=== PATIENT | male | born 1940 | race African-American/Black ===

== ENCOUNTER → 2018-12-14 | Outpatient (RCR) | payer OTHER ==
[~2018-12-14] MED LIST: LIDOCAINE/PRILOCAINE 2.5-2.5% KIT ONE; MINERAL OIL/PETROLAT/GLYCERI 6OZ BTL ONE
== END ==
LOC: WCC 12-07 10:46
PROVIDERS: ATTEND Family Medicine Adult Medicine
DX: E11.8 Type 2 diabetes mellitus with unspecified complications (principal); I87.312 Chronic venous hypertension (idiopathic) with ulcer of left lower extremity; L97.328 Non-pressure chronic ulcer of left ankle with other specified severity; I89.0 Lymphedema, not elsewhere classified; I87.2 Venous insufficiency (chronic) (peripheral); R60.0 Localized edema; I10 Essential (primary) hypertension; E03.9 Hypothyroidism, unspecified; E66.3 Overweight
CPT/HCPCS: 36415; 82948

== ENCOUNTER 2018-12-21 13:19 | Outpatient (RCR) | payer MEDICARE ==
[2018-12-21] MEDS ORDERED: MINERAL OIL/PETROLAT/GLYCERI 2OZ CRM ONE (13:34)
[2018-12-21] MEDS ORDERED: LIDOCAINE/PRILOCAINE 2.5-2.5% KIT ONE (13:34)
[2018-12-21] MEDS ORDERED: MUPIROCIN 2% OINT 22 GM TUBE ONE (13:34)
== END 2019-01-14 ==
LOC: WCC 13:19
PROVIDERS: ATTEND Family Medicine Adult Medicine
DX: E11.8 Type 2 diabetes mellitus with unspecified complications (principal); I87.312 Chronic venous hypertension (idiopathic) with ulcer of left lower extremity; L97.328 Non-pressure chronic ulcer of left ankle with other specified severity; I87.2 Venous insufficiency (chronic) (peripheral); I89.0 Lymphedema, not elsewhere classified; L84 Corns and callosities; R60.0 Localized edema; E03.9 Hypothyroidism, unspecified; I10 Essential (primary) hypertension; E66.3 Overweight

== ENCOUNTER 2019-02-08 11:30 | Outpatient (RCR) | payer MEDICARE ==
[2019-02-08] MEDS ORDERED: MINERAL OIL/PETROLAT/GLYCERI 6OZ BTL ONE (18:07)
[2019-02-08] MEDS ORDERED: MUPIROCIN 2% OINT 22 GM TUBE ONE (18:07)
[2019-02-08] MEDS ORDERED: LIDOCAINE/PRILOCAINE 2.5-2.5% KIT ONE (18:07)
== END 2019-02-13 ==
LOC: WCC 11:30
PROVIDERS: ATTEND Family Medicine Adult Medicine
DX: E11.8 Type 2 diabetes mellitus with unspecified complications (principal); I87.312 Chronic venous hypertension (idiopathic) with ulcer of left lower extremity; L97.328 Non-pressure chronic ulcer of left ankle with other specified severity; L84 Corns and callosities; R60.0 Localized edema; I87.2 Venous insufficiency (chronic) (peripheral); I89.0 Lymphedema, not elsewhere classified; I10 Essential (primary) hypertension; E03.9 Hypothyroidism, unspecified; E66.3 Overweight
CPT/HCPCS: 93971

== ENCOUNTER 2019-03-29 12:26 | Outpatient (RCR) | payer MEDICARE ==
[2019-03-29] MEDS ORDERED: MINERAL OIL/PETROLAT/GLYCERI 6OZ BTL ONE (17:54)
[2019-03-29] MEDS ORDERED: LIDOCAINE/PRILOCAINE 2.5-2.5% KIT ONE (17:54)
== END 2019-04-15 ==
LOC: WCC 12:26
PROVIDERS: ATTEND Family Medicine Adult Medicine
DX: T81.89XA Other complications of procedures, not elsewhere classified, initial encounter (principal); K61.39 Other ischiorectal abscess; I10 Essential (primary) hypertension; E78.00 Pure hypercholesterolemia, unspecified; A49.02 Methicillin resistant Staphylococcus aureus infection, unspecified site

== ENCOUNTER 2019-05-03 11:28 | Outpatient (RCR) | payer MEDICARE ==
[2019-05-03] MEDS ORDERED: MUPIROCIN 2% OINT 22 GM TUBE ONE (16:43)
[2019-05-03] MEDS ORDERED: LIDOCAINE/PRILOCAINE 2.5-2.5% KIT ONE (16:43)
== END 2019-05-16 ==
LOC: WCC 11:28
PROVIDERS: ATTEND Family Medicine Adult Medicine
DX: E11.8 Type 2 diabetes mellitus with unspecified complications (principal); L97.328 Non-pressure chronic ulcer of left ankle with other specified severity; I87.312 Chronic venous hypertension (idiopathic) with ulcer of left lower extremity; I82.402 Acute embolism and thrombosis of unspecified deep veins of left lower extremity; I87.2 Venous insufficiency (chronic) (peripheral); I89.0 Lymphedema, not elsewhere classified; R60.0 Localized edema; L84 Corns and callosities; S80.822A Blister (nonthermal), left lower leg, initial encounter; I10 Essential (primary) hypertension; E03.9 Hypothyroidism, unspecified; E66.3 Overweight

== ENCOUNTER 2019-05-24 11:23 | Outpatient (RCR) | payer MEDICARE ==
[2019-05-24] MEDS ORDERED: LIDOCAINE VISC 2% SOLN 15 ML UDC ONE (16:12)
[2019-05-24] MEDS ORDERED: MUPIROCIN 2% OINT 22 GM TUBE ONE (16:12)
[2019-05-24] MEDS ORDERED: MINERAL OIL/PETROLAT/GLYCERI 6OZ BTL ONE (16:12)
== END 2019-06-16 ==
LOC: WCC 11:23
PROVIDERS: ATTEND Family Medicine Adult Medicine
DX: E11.8 Type 2 diabetes mellitus with unspecified complications (principal); L97.328 Non-pressure chronic ulcer of left ankle with other specified severity; I87.312 Chronic venous hypertension (idiopathic) with ulcer of left lower extremity; I82.402 Acute embolism and thrombosis of unspecified deep veins of left lower extremity; I87.2 Venous insufficiency (chronic) (peripheral); I89.0 Lymphedema, not elsewhere classified; R60.0 Localized edema; S80.822A Blister (nonthermal), left lower leg, initial encounter; L84 Corns and callosities; I10 Essential (primary) hypertension; E03.9 Hypothyroidism, unspecified; E66.3 Overweight

== ENCOUNTER 2019-06-21 11:25 | Outpatient (RCR) | payer MEDICARE ==
[2019-06-21] MEDS ORDERED: MINERAL OIL/PETROLAT/GLYCERI 6OZ BTL ONE (18:53)
[2019-06-21] MEDS ORDERED: LIDOCAINE/PRILOCAINE 2.5-2.5% KIT ONE (18:53)
[2019-06-21] MEDS ORDERED: MUPIROCIN 2% OINT 22 GM TUBE ONE (18:53)
== END 2019-07-16 ==
LOC: WCC 11:25
PROVIDERS: ATTEND Family Medicine Adult Medicine
DX: E11.8 Type 2 diabetes mellitus with unspecified complications (principal); I87.312 Chronic venous hypertension (idiopathic) with ulcer of left lower extremity; L97.328 Non-pressure chronic ulcer of left ankle with other specified severity; I82.402 Acute embolism and thrombosis of unspecified deep veins of left lower extremity; I87.2 Venous insufficiency (chronic) (peripheral); I89.0 Lymphedema, not elsewhere classified; R60.0 Localized edema; L84 Corns and callosities; I10 Essential (primary) hypertension; E03.9 Hypothyroidism, unspecified; E66.3 Overweight

== ENCOUNTER 2019-07-19 13:15 | Outpatient (RCR) | payer MEDICARE ==
[~2019-07-19 13:15] MED LIST changes: +MUPIROCIN 2% OINT 22 GM TUBE ONE
== END 2019-08-16 ==
LOC: WCC 13:15
PROVIDERS: ATTEND Family Medicine Adult Medicine
DX: E11.8 Type 2 diabetes mellitus with unspecified complications (principal); I87.312 Chronic venous hypertension (idiopathic) with ulcer of left lower extremity; L97.328 Non-pressure chronic ulcer of left ankle with other specified severity; L03.116 Cellulitis of left lower limb; I82.402 Acute embolism and thrombosis of unspecified deep veins of left lower extremity; I87.2 Venous insufficiency (chronic) (peripheral); I89.0 Lymphedema, not elsewhere classified; L84 Corns and callosities; R60.0 Localized edema; I10 Essential (primary) hypertension; B96.89 Other specified bacterial agents as the cause of diseases classified elsewhere; E03.9 Hypothyroidism, unspecified; E66.3 Overweight

== ENCOUNTER 2019-09-11 09:52 | Outpatient (RCR) | payer MEDICARE ==
[2019-09-11] MEDS ORDERED: MUPIROCIN 2% OINT 22 GM TUBE ONE (14:59)
[2019-09-11] MEDS ORDERED: LIDOCAINE/PRILOCAINE 2.5-2.5% KIT ONE (14:59)
== END 2019-09-15 ==
LOC: WCC 09:52
PROVIDERS: ATTEND Family Medicine Adult Medicine
DX: E11.8 Type 2 diabetes mellitus with unspecified complications (principal); I87.312 Chronic venous hypertension (idiopathic) with ulcer of left lower extremity; I82.402 Acute embolism and thrombosis of unspecified deep veins of left lower extremity; L97.328 Non-pressure chronic ulcer of left ankle with other specified severity; L03.116 Cellulitis of left lower limb; L84 Corns and callosities; R60.0 Localized edema; I89.0 Lymphedema, not elsewhere classified; I87.2 Venous insufficiency (chronic) (peripheral); I10 Essential (primary) hypertension; B96.89 Other specified bacterial agents as the cause of diseases classified elsewhere; E03.9 Hypothyroidism, unspecified; E66.3 Overweight
CPT/HCPCS: 36415; 82948

== ENCOUNTER 2019-09-27 01:00 | Outpatient (RCR) | payer MEDICARE | END 2019-10-16 | LOC: WCC 01:00 | PROVIDERS: ATTEND Family Medicine Adult Medicine | DX: E11.8 Type 2 diabetes mellitus with unspecified complications (principal); I87.312 Chronic venous hypertension (idiopathic) with ulcer of left lower extremity; L97.328 Non-pressure chronic ulcer of left ankle with other specified severity; L84 Corns and callosities; R60.0 Localized edema; I82.402 Acute embolism and thrombosis of unspecified deep veins of left lower extremity; I87.2 Venous insufficiency (chronic) (peripheral); I89.0 Lymphedema, not elsewhere classified; L03.116 Cellulitis of left lower limb; I10 Essential (primary) hypertension; B96.89 Other specified bacterial agents as the cause of diseases classified elsewhere; E03.9 Hypothyroidism, unspecified; E66.3 Overweight ==

== ENCOUNTER 2019-12-06 15:40 | Outpatient (RCR) | payer MEDICARE ==
[~2019-12-06 15:40] MED LIST changes: -MINERAL OIL/PETROLAT/GLYCERI 6OZ BTL ONE
== END 2019-12-15 ==
LOC: WCC 15:40
PROVIDERS: ATTEND Family Medicine Adult Medicine
DX: E11.8 Type 2 diabetes mellitus with unspecified complications (principal); I87.312 Chronic venous hypertension (idiopathic) with ulcer of left lower extremity; L97.328 Non-pressure chronic ulcer of left ankle with other specified severity; I82.402 Acute embolism and thrombosis of unspecified deep veins of left lower extremity; I87.2 Venous insufficiency (chronic) (peripheral); I89.0 Lymphedema, not elsewhere classified; R60.0 Localized edema; L84 Corns and callosities; I10 Essential (primary) hypertension; B96.5 Pseudomonas (aeruginosa) (mallei) (pseudomallei) as the cause of diseases classified elsewhere; B96.89 Other specified bacterial agents as the cause of diseases classified elsewhere; E03.9 Hypothyroidism, unspecified; E66.3 Overweight
CPT/HCPCS: 36415; 82948

== ENCOUNTER 2020-01-11 14:31 | Outpatient (RCR) | payer MEDICARE ==
[2020-01-11] MEDS ORDERED: MUPIROCIN 2% OINT 22 GM TUBE ONE (15:03)
[2020-01-11] MEDS ORDERED: LIDOCAINE VISC 2% SOLN 15 ML UDC ONE (15:03)
== END 2020-01-15 ==
LOC: WCC 14:31
PROVIDERS: ATTEND Family Medicine Adult Medicine
DX: E11.8 Type 2 diabetes mellitus with unspecified complications (principal); I87.312 Chronic venous hypertension (idiopathic) with ulcer of left lower extremity; L97.328 Non-pressure chronic ulcer of left ankle with other specified severity; I87.2 Venous insufficiency (chronic) (peripheral); I82.402 Acute embolism and thrombosis of unspecified deep veins of left lower extremity; R60.0 Localized edema; I89.0 Lymphedema, not elsewhere classified; L84 Corns and callosities; I10 Essential (primary) hypertension; B96.89 Other specified bacterial agents as the cause of diseases classified elsewhere; B96.5 Pseudomonas (aeruginosa) (mallei) (pseudomallei) as the cause of diseases classified elsewhere; E66.3 Overweight; E03.9 Hypothyroidism, unspecified
CPT/HCPCS: 36415; 82948; 87071; 87075; 87186; 87205

== ENCOUNTER 2020-02-06 09:26 | Outpatient (RCR) | payer MEDICARE ==
[~2020-02-06 09:26] MED LIST changes: +LIDOCAINE VISC 2% SOLN 15 ML UDC ONE; +MINERAL OIL/PETROLAT/GLYCERI 6OZ BTL ONE
[2020-02-06] MEDS ORDERED: COLLAGENASE OINTMENT 30 GM TUBE ONE (14:10)
[2020-02-06] MEDS ORDERED: LIDOCAINE/PRILOCAINE 2.5-2.5% KIT ONE (14:10)
[2020-02-06] MEDS ORDERED: MUPIROCIN 2% OINT 22 GM TUBE ONE (14:10)
== END 2020-02-14 ==
LOC: WCC 09:26
PROVIDERS: ATTEND Family Medicine
DX: E11.8 Type 2 diabetes mellitus with unspecified complications (principal); I87.312 Chronic venous hypertension (idiopathic) with ulcer of left lower extremity; L97.328 Non-pressure chronic ulcer of left ankle with other specified severity; I82.402 Acute embolism and thrombosis of unspecified deep veins of left lower extremity; R60.0 Localized edema; I87.2 Venous insufficiency (chronic) (peripheral); I89.0 Lymphedema, not elsewhere classified; L84 Corns and callosities; I10 Essential (primary) hypertension; B96.20 Unspecified Escherichia coli [E. coli] as the cause of diseases classified elsewhere; B96.89 Other specified bacterial agents as the cause of diseases classified elsewhere; B96.5 Pseudomonas (aeruginosa) (mallei) (pseudomallei) as the cause of diseases classified elsewhere; E03.9 Hypothyroidism, unspecified; E66.3 Overweight
CPT/HCPCS: 36415; 82948; 87071; 87075; 87186; 87205

== ENCOUNTER → 2020-02-11 | Outpatient (CLI) | payer MEDICARE | LOC: CARD 08:53 | PROVIDERS: ATTEND Family Medicine | DX: E11.8 Type 2 diabetes mellitus with unspecified complications (principal) | CPT/HCPCS: 93926; 99251 ==

== ENCOUNTER 2020-03-12 11:05 | Outpatient (RCR) | payer MEDICARE ==
[~2020-03-12 11:05] MED LIST changes: -LIDOCAINE/PRILOCAINE 2.5-2.5% KIT ONE; +MINERAL OIL/PETROLAT/GLYCERI 2OZ CRM ONE; -MUPIROCIN 2% OINT 22 GM TUBE ONE
[2020-03-12] MEDS ORDERED: LIDOCAINE/PRILOCAINE 2.5-2.5% KIT ONE (13:43)
== END 2020-03-16 ==
LOC: WCC 11:05
PROVIDERS: ATTEND Family Medicine
DX: E11.8 Type 2 diabetes mellitus with unspecified complications (principal); I87.312 Chronic venous hypertension (idiopathic) with ulcer of left lower extremity; L97.328 Non-pressure chronic ulcer of left ankle with other specified severity; I82.402 Acute embolism and thrombosis of unspecified deep veins of left lower extremity; I73.9 Peripheral vascular disease, unspecified; I87.2 Venous insufficiency (chronic) (peripheral); I89.0 Lymphedema, not elsewhere classified; R60.0 Localized edema; L84 Corns and callosities; I10 Essential (primary) hypertension; B96.5 Pseudomonas (aeruginosa) (mallei) (pseudomallei) as the cause of diseases classified elsewhere; B96.89 Other specified bacterial agents as the cause of diseases classified elsewhere; B96.20 Unspecified Escherichia coli [E. coli] as the cause of diseases classified elsewhere; E03.9 Hypothyroidism, unspecified; E66.3 Overweight

== ENCOUNTER → 2020-04-15 | Outpatient (RCR) | payer MEDICARE ==
[2020-04-15 11:20] LABS: BASOPHILS % 0.6 % (0.0-1.0); EOSINOPHILS # (AUTO) 0.1 (0.0-0.4); EOSINOPHILS % 2.5 % (0.0-6.0); HEMATOCRIT 32.3 % (38.2-49.6); HEMOGLOBIN 9.8 g/dL (14.0-18.0); LYMPHOCYTES # (AUTO) 1.4 (1.0-3.2); LYMPHOCYTES % 40.1 % (18.0-39.1); MEAN CORPUSCULAR HEMOGLOBIN 26.7 pg (28-32); MEAN CORPUSCULAR HGB CONC 30.3 g/dL (31-35); MONOCYTES # (AUTO) 0.3 (0.2-0.8); MONOCYTES % 8.1 % (4.4-11.3); NEUTROPHILS # (AUTO) 1.7 (2.1-6.9); NEUTROPHILS % 48.4 % (38.7-80.0); PLATELET COUNT 150 x10e3/uL (140-360); RED BLOOD COUNT 3.67 x10e6/uL (4.3-5.7); RED CELL DISTRIBUTION WIDTH 16.3 % (11.7-14.4)
[2020-04-15 11:42] LABS: ALANINE AMINOTRANSFERASE 7 IU/L (0-55); ALBUMIN 3.7 g/dL (3.5-5.0); ALBUMIN/GLOBULIN RATIO 0.9 (0.8-2.0); ALKALINE PHOSPHATASE 61 IU/L (40-150); ANION GAP 12.2 mmol/L (8-16); BLOOD UREA NITROGEN 12 mg/dL (7-26); BUN/CREATININE RATIO 13 (6-25); CALCIUM 9.5 mg/dL (8.4-10.2); CARBON DIOXIDE 25 mmol/L (22-29); CHLORIDE 105 mmol/L (98-107); CREATININE, SERUM 0.91 mg/dL (0.72-1.25); EST GLOMERULAR FILTRATION RATE > 60 ML/MIN (60-); GLUCOSE 85 mg/dL (74-118); POTASSIUM 4.2 mmol/L (3.5-5.1); SODIUM 138 mmol/L (136-145)
== END ==
LOC: WCC 03-19 13:51
PROVIDERS: ATTEND Family Medicine Adult Medicine
DX: E11.8 Type 2 diabetes mellitus with unspecified complications (principal); B37.89 Other sites of candidiasis; I87.312 Chronic venous hypertension (idiopathic) with ulcer of left lower extremity; L97.328 Non-pressure chronic ulcer of left ankle with other specified severity; I82.402 Acute embolism and thrombosis of unspecified deep veins of left lower extremity; I73.9 Peripheral vascular disease, unspecified; I87.2 Venous insufficiency (chronic) (peripheral); I89.0 Lymphedema, not elsewhere classified; R60.0 Localized edema; L84 Corns and callosities; I10 Essential (primary) hypertension; B96.5 Pseudomonas (aeruginosa) (mallei) (pseudomallei) as the cause of diseases classified elsewhere; B96.89 Other specified bacterial agents as the cause of diseases classified elsewhere; E03.9 Hypothyroidism, unspecified; E66.9 Obesity, unspecified
CPT/HCPCS: 36415; 80053; 83036; 85025; 87071; 87075; 87186; 87205

== ENCOUNTER 2020-05-15 12:14 | Outpatient (RCR) | payer MEDICARE | END 2020-05-16 | LOC: WCC 12:14 | PROVIDERS: ATTEND Family Medicine Adult Medicine | DX: E11.8 Type 2 diabetes mellitus with unspecified complications (principal); I87.312 Chronic venous hypertension (idiopathic) with ulcer of left lower extremity; L97.328 Non-pressure chronic ulcer of left ankle with other specified severity; I82.402 Acute embolism and thrombosis of unspecified deep veins of left lower extremity; I73.9 Peripheral vascular disease, unspecified; I87.2 Venous insufficiency (chronic) (peripheral); I89.0 Lymphedema, not elsewhere classified; R60.0 Localized edema; B37.89 Other sites of candidiasis; I10 Essential (primary) hypertension; B96.20 Unspecified Escherichia coli [E. coli] as the cause of diseases classified elsewhere; B96.89 Other specified bacterial agents as the cause of diseases classified elsewhere; E03.9 Hypothyroidism, unspecified; E66.3 Overweight ==

== ENCOUNTER 2020-05-29 14:10 | Outpatient (RCR) | payer MEDICARE | END 2020-06-16 | LOC: WCC 14:10 | PROVIDERS: ATTEND Family Medicine Adult Medicine | DX: E11.8 Type 2 diabetes mellitus with unspecified complications (principal); I87.312 Chronic venous hypertension (idiopathic) with ulcer of left lower extremity; L97.328 Non-pressure chronic ulcer of left ankle with other specified severity; I82.402 Acute embolism and thrombosis of unspecified deep veins of left lower extremity; I73.9 Peripheral vascular disease, unspecified; I89.0 Lymphedema, not elsewhere classified; R60.0 Localized edema; I87.2 Venous insufficiency (chronic) (peripheral); B96.89 Other specified bacterial agents as the cause of diseases classified elsewhere; I10 Essential (primary) hypertension; E03.9 Hypothyroidism, unspecified; E66.3 Overweight ==

== ENCOUNTER 2020-07-03 14:24 | Outpatient (RCR) | payer MEDICARE ==
[~2020-07-03 14:24] MED LIST changes: -LIDOCAINE VISC 2% SOLN 15 ML UDC ONE; +LIDOCAINE/PRILOCAINE 2.5-2.5% KIT ONE
== END 2020-07-16 ==
LOC: WCC 14:24
PROVIDERS: ATTEND Family Medicine Adult Medicine
DX: E11.8 Type 2 diabetes mellitus with unspecified complications (principal); L97.328 Non-pressure chronic ulcer of left ankle with other specified severity; I82.402 Acute embolism and thrombosis of unspecified deep veins of left lower extremity; I87.312 Chronic venous hypertension (idiopathic) with ulcer of left lower extremity; I73.9 Peripheral vascular disease, unspecified; I87.2 Venous insufficiency (chronic) (peripheral); I89.0 Lymphedema, not elsewhere classified; R60.0 Localized edema; L84 Corns and callosities; I10 Essential (primary) hypertension; B96.89 Other specified bacterial agents as the cause of diseases classified elsewhere; E03.9 Hypothyroidism, unspecified; E66.3 Overweight
CPT/HCPCS: 87071; 87075; 87186; 87205

== ENCOUNTER → 2020-07-03 | Outpatient (CLI) | payer MEDICARE ==
--- NOTE | 2020-07-03 14:58 | Diagnostic Imaging Report ---
EXAMINATION: CHEST 2 VIEWS INDICATION: Shortness of breath COMPARISON: None FINDINGS: LINES/TUBES:None LUNGS:The lungs are moderately inflated. Mild bibasilar patchy opacities. PLEURA:No pleural effusion or pneumothorax. MEDIASTINUM:The cardiomediastinal silhouette appears normal in size and shape. Atherosclerotic calcifications of the thoracic aorta. BONES/SOFT TISSUES:No acute osseous injury. ABDOMEN:No free air under the diaphragm. IMPRESSION: Mild bibasilar patchy opacities, more likely subsegmental atelectasis than superimposed aspiration or pneumonia. Signed by: Duc Alexis MD on 07/03/2020 2:54 PM
== END ==
LOC: RAD 12:26
PROVIDERS: ATTEND Family Medicine Adult Medicine
DX: I87.312 Chronic venous hypertension (idiopathic) with ulcer of left lower extremity (principal); L97.328 Non-pressure chronic ulcer of left ankle with other specified severity; R06.02 Shortness of breath; R60.9 Edema, unspecified
CPT/HCPCS: 71046; 93971

== ENCOUNTER → 2020-07-09 | Outpatient (CLI) | payer MEDICARE ==
[2020-07-09 11:27] LABS: HEMOGLOBIN 8.9 g/dL (14.0-18.0)
[2020-07-09 11:34] LABS: INR 1.38; PROTHROMBIN TIME 17.7 seconds (11.9-14.5)
[2020-07-09 11:40] LABS: BLOOD UREA NITROGEN 14 mg/dL (7-26); BUN/CREATININE RATIO 15 (6-25); CREATININE, SERUM 0.95 mg/dL (0.72-1.25); EST GLOMERULAR FILTRATION RATE > 60 ML/MIN (60-)
--- NOTE | 2020-07-09 13:34 | Diagnostic Imaging Report ---
EXAMINATION: CHEST XRAY LINE PLACEMENT INDICATION: Line placement COMPARISON: Chest 07/03/2020 FINDINGS: LINES/TUBES:Right PICC line terminates in the SVC. LUNGS:The lungs are moderately inflated. There is perihilar fullness and indistinctness of the pulmonary vasculature. Unchanged mild bilateral patchy opacities. PLEURA:No pleural effusion or pneumothorax. MEDIASTINUM:Cardiomediastinal silhouette is stably enlarged. BONES/SOFT TISSUES:No acute osseous injury. ABDOMEN:No free air under the diaphragm. IMPRESSION: Right PICC line terminates in the SVC. Signed by: Duc Alexis MD on 07/09/2020 1:31 PM
== END ==
LOC: DX 10:46
PROVIDERS: ATTEND Internal Medicine Infectious Disease
DX: A49.8 Other bacterial infections of unspecified site (principal); I87.9 Disorder of vein, unspecified
CPT/HCPCS: 36415; 36569; 71045; 82565; 84520; 85014; 85049; 85610; 85730

== ENCOUNTER 2020-08-14 12:14 | Outpatient (RCR) | payer MEDICARE ==
[~2020-08-14 12:14] MED LIST changes: -MINERAL OIL/PETROLAT/GLYCERI 2OZ CRM ONE
[2020-08-14] MEDS ORDERED: LIDOCAINE VISC 2% SOLN 15 ML UDC ONE ×2 (13:16→16:32)
[2020-08-14] MEDS ORDERED: MINERAL OIL/PETROLAT/GLYCERI 6OZ BTL ONE ×2 (13:16→16:32)
== END 2020-08-16 ==
LOC: WCC 12:14
PROVIDERS: ATTEND Family Medicine Adult Medicine
DX: E11.8 Type 2 diabetes mellitus with unspecified complications (principal); I87.312 Chronic venous hypertension (idiopathic) with ulcer of left lower extremity; L97.328 Non-pressure chronic ulcer of left ankle with other specified severity; S91.202A Unspecified open wound of left great toe with damage to nail, initial encounter; I82.402 Acute embolism and thrombosis of unspecified deep veins of left lower extremity; I73.9 Peripheral vascular disease, unspecified; I89.0 Lymphedema, not elsewhere classified; R60.0 Localized edema; I87.2 Venous insufficiency (chronic) (peripheral); R06.02 Shortness of breath; I50.22 Chronic systolic (congestive) heart failure; I10 Essential (primary) hypertension; B96.29 Other Escherichia coli [E. coli] as the cause of diseases classified elsewhere; B96.5 Pseudomonas (aeruginosa) (mallei) (pseudomallei) as the cause of diseases classified elsewhere; B96.89 Other specified bacterial agents as the cause of diseases classified elsewhere; E03.9 Hypothyroidism, unspecified; E66.3 Overweight; W29.8XXA Contact with other powered hand tools and household machinery, initial encounter
CPT/HCPCS: 87071; 87075; 87205; 88305; 88312

== ENCOUNTER 2020-09-04 14:38 | Outpatient (RCR) | payer MEDICARE ==
[~2020-09-04 14:38] MED LIST changes: +LIDOCAINE VISC 2% SOLN 15 ML UDC ONE; -LIDOCAINE/PRILOCAINE 2.5-2.5% KIT ONE; +MINERAL OIL/PETROLAT/GLYCERI 2OZ CRM ONE
== END 2020-09-15 ==
LOC: WCC 14:38
PROVIDERS: ATTEND Family Medicine Adult Medicine
DX: E11.8 Type 2 diabetes mellitus with unspecified complications (principal); I87.312 Chronic venous hypertension (idiopathic) with ulcer of left lower extremity; L97.328 Non-pressure chronic ulcer of left ankle with other specified severity; S91.202A Unspecified open wound of left great toe with damage to nail, initial encounter; I73.9 Peripheral vascular disease, unspecified; I82.402 Acute embolism and thrombosis of unspecified deep veins of left lower extremity; I87.2 Venous insufficiency (chronic) (peripheral); I89.0 Lymphedema, not elsewhere classified; R60.0 Localized edema; S80.811A Abrasion, right lower leg, initial encounter; I10 Essential (primary) hypertension; I50.22 Chronic systolic (congestive) heart failure; B96.29 Other Escherichia coli [E. coli] as the cause of diseases classified elsewhere; B96.5 Pseudomonas (aeruginosa) (mallei) (pseudomallei) as the cause of diseases classified elsewhere; B96.89 Other specified bacterial agents as the cause of diseases classified elsewhere; E03.9 Hypothyroidism, unspecified; E66.3 Overweight; W29.8XXA Contact with other powered hand tools and household machinery, initial encounter
CPT/HCPCS: 87071; 87075; 87102; 87205; 87206

== ENCOUNTER → 2020-09-10 | Outpatient (CLI) | payer MEDICARE | LOC: DX 11:59 | PROVIDERS: ATTEND Internal Medicine Infectious Disease | DX: Z45.2 Encounter for adjustment and management of vascular access device (principal); B96.89 Other specified bacterial agents as the cause of diseases classified elsewhere | CPT/HCPCS: 36569; 71045 ==

== ENCOUNTER → 2020-10-16 | Outpatient (RCR) | payer MEDICARE ==
[~2020-10-16] MED LIST changes: -MINERAL OIL/PETROLAT/GLYCERI 2OZ CRM ONE
== END ==
LOC: WCC 09-18 10:47
PROVIDERS: ATTEND Family Medicine Adult Medicine
DX: E11.8 Type 2 diabetes mellitus with unspecified complications (principal); I82.402 Acute embolism and thrombosis of unspecified deep veins of left lower extremity; L97.328 Non-pressure chronic ulcer of left ankle with other specified severity; I87.312 Chronic venous hypertension (idiopathic) with ulcer of left lower extremity; I87.2 Venous insufficiency (chronic) (peripheral); R60.0 Localized edema; I73.9 Peripheral vascular disease, unspecified; I10 Essential (primary) hypertension; I50.22 Chronic systolic (congestive) heart failure; B96.29 Other Escherichia coli [E. coli] as the cause of diseases classified elsewhere; B96.5 Pseudomonas (aeruginosa) (mallei) (pseudomallei) as the cause of diseases classified elsewhere; B96.89 Other specified bacterial agents as the cause of diseases classified elsewhere; E03.9 Hypothyroidism, unspecified; E66.3 Overweight; I89.0 Lymphedema, not elsewhere classified; S80.811A Abrasion, right lower leg, initial encounter; W29.8XXA Contact with other powered hand tools and household machinery, initial encounter

== ENCOUNTER 2020-11-06 16:20 | Outpatient (RCR) | payer MEDICARE | END 2020-11-16 | LOC: WCC 16:20 | PROVIDERS: ATTEND Family Medicine Adult Medicine | DX: E11.8 Type 2 diabetes mellitus with unspecified complications (principal); L97.328 Non-pressure chronic ulcer of left ankle with other specified severity; L97.811 Non-pressure chronic ulcer of other part of right lower leg limited to breakdown of skin; L97.229 Non-pressure chronic ulcer of left calf with unspecified severity; I87.312 Chronic venous hypertension (idiopathic) with ulcer of left lower extremity; I87.311 Chronic venous hypertension (idiopathic) with ulcer of right lower extremity; I82.402 Acute embolism and thrombosis of unspecified deep veins of left lower extremity; I89.0 Lymphedema, not elsewhere classified; I87.2 Venous insufficiency (chronic) (peripheral); R60.0 Localized edema; I73.9 Peripheral vascular disease, unspecified; I10 Essential (primary) hypertension; B96.29 Other Escherichia coli [E. coli] as the cause of diseases classified elsewhere; B96.5 Pseudomonas (aeruginosa) (mallei) (pseudomallei) as the cause of diseases classified elsewhere; B96.89 Other specified bacterial agents as the cause of diseases classified elsewhere; I50.22 Chronic systolic (congestive) heart failure; E03.9 Hypothyroidism, unspecified; E66.3 Overweight; W29.8XXA Contact with other powered hand tools and household machinery, initial encounter | CPT/HCPCS: 36415; 82948 ==

== ENCOUNTER 2020-12-11 15:06 | Outpatient (RCR) | payer MEDICARE ==
[~2020-12-11 15:06] MED LIST changes: -MINERAL OIL/PETROLAT/GLYCERI 6OZ BTL ONE
== END 2020-12-14 ==
LOC: WCC 15:06
PROVIDERS: ATTEND Family Medicine Adult Medicine
DX: E11.8 Type 2 diabetes mellitus with unspecified complications (principal); I82.402 Acute embolism and thrombosis of unspecified deep veins of left lower extremity; L97.328 Non-pressure chronic ulcer of left ankle with other specified severity; I87.312 Chronic venous hypertension (idiopathic) with ulcer of left lower extremity; I87.2 Venous insufficiency (chronic) (peripheral); I89.0 Lymphedema, not elsewhere classified; R60.0 Localized edema; I73.9 Peripheral vascular disease, unspecified; I10 Essential (primary) hypertension; I50.22 Chronic systolic (congestive) heart failure; B96.29 Other Escherichia coli [E. coli] as the cause of diseases classified elsewhere; B96.89 Other specified bacterial agents as the cause of diseases classified elsewhere; B96.5 Pseudomonas (aeruginosa) (mallei) (pseudomallei) as the cause of diseases classified elsewhere; E03.9 Hypothyroidism, unspecified; E66.3 Overweight; W29.8XXA Contact with other powered hand tools and household machinery, initial encounter

== ENCOUNTER 2021-01-13 15:43 | Outpatient (RCR) | payer MEDICARE ==
[~2021-01-13 15:43] MED LIST changes: +LIDOCAINE/PRILOCAINE 2.5-2.5% KIT ONE; +MINERAL OIL/PETROLAT/GLYCERI 2OZ CRM ONE; +MINERAL OIL/PETROLAT/GLYCERI 6OZ BTL ONE
== END 2021-01-14 ==
LOC: WCC 15:43
PROVIDERS: ATTEND Family Medicine Adult Medicine
DX: E11.8 Type 2 diabetes mellitus with unspecified complications (principal); I87.312 Chronic venous hypertension (idiopathic) with ulcer of left lower extremity; L97.328 Non-pressure chronic ulcer of left ankle with other specified severity; I82.402 Acute embolism and thrombosis of unspecified deep veins of left lower extremity; R60.0 Localized edema; I89.0 Lymphedema, not elsewhere classified; I73.9 Peripheral vascular disease, unspecified; I87.2 Venous insufficiency (chronic) (peripheral); B96.29 Other Escherichia coli [E. coli] as the cause of diseases classified elsewhere; B96.5 Pseudomonas (aeruginosa) (mallei) (pseudomallei) as the cause of diseases classified elsewhere; B96.89 Other specified bacterial agents as the cause of diseases classified elsewhere; I50.22 Chronic systolic (congestive) heart failure; I10 Essential (primary) hypertension; E03.9 Hypothyroidism, unspecified; E66.3 Overweight; W29.8XXA Contact with other powered hand tools and household machinery, initial encounter
CPT/HCPCS: 87071; 87075; 87186; 87205

== ENCOUNTER 2021-02-12 14:55 | Outpatient (RCR) | payer MEDICARE | END 2021-02-13 | LOC: WCC 14:55 | PROVIDERS: ATTEND Family Medicine Adult Medicine | DX: E11.8 Type 2 diabetes mellitus with unspecified complications (principal); I87.312 Chronic venous hypertension (idiopathic) with ulcer of left lower extremity; L97.328 Non-pressure chronic ulcer of left ankle with other specified severity; R60.0 Localized edema; I73.9 Peripheral vascular disease, unspecified; I82.402 Acute embolism and thrombosis of unspecified deep veins of left lower extremity; I87.2 Venous insufficiency (chronic) (peripheral); I89.0 Lymphedema, not elsewhere classified; I10 Essential (primary) hypertension; I50.22 Chronic systolic (congestive) heart failure; B96.89 Other specified bacterial agents as the cause of diseases classified elsewhere; E03.9 Hypothyroidism, unspecified; E66.3 Overweight; W29.8XXA Contact with other powered hand tools and household machinery, initial encounter | CPT/HCPCS: 36415; 82948 ==

== ENCOUNTER 2021-03-12 09:07 | Outpatient (RCR) | payer MEDICARE ==
[~2021-03-12 09:07] MED LIST changes: -LIDOCAINE/PRILOCAINE 2.5-2.5% KIT ONE
[2021-03-12] MEDS ORDERED: MINERAL OIL/PETROLAT/GLYCERI 6OZ BTL ONE (13:31)
== END 2021-03-16 ==
LOC: WCC 09:07
PROVIDERS: ATTEND Family Medicine Adult Medicine
DX: E11.8 Type 2 diabetes mellitus with unspecified complications (principal); I87.312 Chronic venous hypertension (idiopathic) with ulcer of left lower extremity; L97.328 Non-pressure chronic ulcer of left ankle with other specified severity; I82.402 Acute embolism and thrombosis of unspecified deep veins of left lower extremity; I73.9 Peripheral vascular disease, unspecified; I87.2 Venous insufficiency (chronic) (peripheral); I89.0 Lymphedema, not elsewhere classified; R60.0 Localized edema; B96.89 Other specified bacterial agents as the cause of diseases classified elsewhere; I50.22 Chronic systolic (congestive) heart failure; I10 Essential (primary) hypertension; E03.9 Hypothyroidism, unspecified; E66.3 Overweight; W29.8XXA Contact with other powered hand tools and household machinery, initial encounter

== ENCOUNTER 2021-04-14 08:51 | Outpatient (RCR) | payer MEDICARE ==
[~2021-04-14 08:51] MED LIST changes: +LIDOCAINE/PRILOCAINE 2.5-2.5% KIT ONE; -MINERAL OIL/PETROLAT/GLYCERI 2OZ CRM ONE
== END 2021-04-15 ==
LOC: WCC 08:51
PROVIDERS: ATTEND Family Medicine Adult Medicine
DX: I87.312 Chronic venous hypertension (idiopathic) with ulcer of left lower extremity (principal); E11.8 Type 2 diabetes mellitus with unspecified complications; L97.328 Non-pressure chronic ulcer of left ankle with other specified severity; I82.402 Acute embolism and thrombosis of unspecified deep veins of left lower extremity; R60.0 Localized edema; I89.0 Lymphedema, not elsewhere classified; I87.2 Venous insufficiency (chronic) (peripheral); I73.9 Peripheral vascular disease, unspecified; I10 Essential (primary) hypertension; I50.22 Chronic systolic (congestive) heart failure; B96.89 Other specified bacterial agents as the cause of diseases classified elsewhere; E03.9 Hypothyroidism, unspecified; E66.3 Overweight; W29.8XXA Contact with other powered hand tools and household machinery, initial encounter

== ENCOUNTER 2021-05-14 09:26 | Outpatient (RCR) | payer MEDICARE ==
[~2021-05-14 09:26] MED LIST changes: +MINERAL OIL/PETROLAT/GLYCERI 2OZ CRM ONE
== END 2021-05-16 ==
LOC: WCC 09:26
PROVIDERS: ATTEND Family Medicine Adult Medicine
DX: E11.8 Type 2 diabetes mellitus with unspecified complications (principal); I87.312 Chronic venous hypertension (idiopathic) with ulcer of left lower extremity; L97.328 Non-pressure chronic ulcer of left ankle with other specified severity; I73.9 Peripheral vascular disease, unspecified; I82.402 Acute embolism and thrombosis of unspecified deep veins of left lower extremity; I87.2 Venous insufficiency (chronic) (peripheral); I89.0 Lymphedema, not elsewhere classified; R60.0 Localized edema; I10 Essential (primary) hypertension; I50.22 Chronic systolic (congestive) heart failure; E66.3 Overweight; W29.8XXA Contact with other powered hand tools and household machinery, initial encounter; E03.9 Hypothyroidism, unspecified; B96.89 Other specified bacterial agents as the cause of diseases classified elsewhere

== ENCOUNTER → 2021-06-16 | Outpatient (RCR) | payer MEDICARE ==
[~2021-06-16] MED LIST changes: -LIDOCAINE VISC 2% SOLN 15 ML UDC ONE
== END ==
LOC: WCC 05-18 10:31
PROVIDERS: ATTEND Family Medicine Adult Medicine
DX: I87.312 Chronic venous hypertension (idiopathic) with ulcer of left lower extremity (principal); E11.8 Type 2 diabetes mellitus with unspecified complications; L97.328 Non-pressure chronic ulcer of left ankle with other specified severity; I82.402 Acute embolism and thrombosis of unspecified deep veins of left lower extremity; I73.9 Peripheral vascular disease, unspecified; I87.2 Venous insufficiency (chronic) (peripheral); I89.0 Lymphedema, not elsewhere classified; R60.0 Localized edema; I50.22 Chronic systolic (congestive) heart failure; I10 Essential (primary) hypertension; E66.3 Overweight; E03.9 Hypothyroidism, unspecified; B96.89 Other specified bacterial agents as the cause of diseases classified elsewhere; W29.8XXA Contact with other powered hand tools and household machinery, initial encounter

== ENCOUNTER → 2021-07-16 | Outpatient (RCR) | payer MEDICARE | LOC: WCC 06-18 08:55 | PROVIDERS: ATTEND Family Medicine Adult Medicine | DX: E11.8 Type 2 diabetes mellitus with unspecified complications (principal); I87.312 Chronic venous hypertension (idiopathic) with ulcer of left lower extremity; L97.328 Non-pressure chronic ulcer of left ankle with other specified severity; I82.402 Acute embolism and thrombosis of unspecified deep veins of left lower extremity; I73.9 Peripheral vascular disease, unspecified; I87.2 Venous insufficiency (chronic) (peripheral); I89.0 Lymphedema, not elsewhere classified; R60.0 Localized edema; I10 Essential (primary) hypertension; I50.22 Chronic systolic (congestive) heart failure; B96.89 Other specified bacterial agents as the cause of diseases classified elsewhere; E03.9 Hypothyroidism, unspecified; E66.3 Overweight; W29.8XXA Contact with other powered hand tools and household machinery, initial encounter ==

== ENCOUNTER 2021-08-13 11:36 | Outpatient (RCR) | payer MEDICARE ==
[~2021-08-13 11:36] MED LIST changes: +LIDOCAINE VISC 2% SOLN 15 ML UDC ONE; -LIDOCAINE/PRILOCAINE 2.5-2.5% KIT ONE; -MINERAL OIL/PETROLAT/GLYCERI 2OZ CRM ONE; +MUPIROCIN 2% OINT 22 GM TUBE ONE
[2021-08-14] MEDS ORDERED: LEVOTHYROXINE50 MCG PO (05:49)
[2021-08-14] MEDS ORDERED: BUMETANIDE1 MG PO (05:50)
[2021-08-14] MEDS ORDERED: IBUPROFEN200 MG PO (05:52)
[2021-08-14] MEDS ORDERED: SAVAYSA60 MG PO (05:53)
[2021-08-14] MEDS ORDERED: COLACE100 MG PO (05:54)
[2021-08-14] MEDS ORDERED: FLOMAX0.4 MG PO (05:54)
[2021-08-14] MEDS ORDERED: ASPIRIN81 MG PO (05:56)
[2021-08-14] MEDS ORDERED: METFORMIN HCL500 MG PO (05:56)
[2021-08-14] MEDS ORDERED: PRAVASTATIN SOD40 MG PO (05:56)
[2021-08-17] MEDS ORDERED: ZYVOX600 MG PO (11:50)
[2021-08-17] MEDS ORDERED: CIPRO250 MG PO (11:50)
== END 2021-08-16 ==
LOC: WCC 11:36
PROVIDERS: ATTEND Family Medicine Adult Medicine
DX: I87.312 Chronic venous hypertension (idiopathic) with ulcer of left lower extremity (principal); E11.8 Type 2 diabetes mellitus with unspecified complications; L97.321 Non-pressure chronic ulcer of left ankle limited to breakdown of skin; L97.328 Non-pressure chronic ulcer of left ankle with other specified severity; L97.821 Non-pressure chronic ulcer of other part of left lower leg limited to breakdown of skin; I89.0 Lymphedema, not elsewhere classified; I82.402 Acute embolism and thrombosis of unspecified deep veins of left lower extremity; I87.2 Venous insufficiency (chronic) (peripheral); I73.9 Peripheral vascular disease, unspecified; R60.0 Localized edema; S90.522A Blister (nonthermal), left ankle, initial encounter; I50.22 Chronic systolic (congestive) heart failure; I10 Essential (primary) hypertension; B96.89 Other specified bacterial agents as the cause of diseases classified elsewhere; E03.9 Hypothyroidism, unspecified; E66.3 Overweight; W29.8XXA Contact with other powered hand tools and household machinery, initial encounter
CPT/HCPCS: 87071; 87075; 87205

== ENCOUNTER 2021-08-13 11:45 | Inpatient (IN) | payer MEDICARE ==
[2021-08-13] VITALS (7 sets, daily range): BP systolic 98–113; BP diastolic 52–58
[~2021-08-13] VITALS: Ht 182.9 cm; Wt 130.2 kg
[2021-08-13] MEDS ORDERED: ONDANSETRON HCL INJ 2MG/ML 2ML 2 MG/ML VIAL IV PRN (15:15)
[2021-08-13] MEDS ORDERED: ACETAMINOPHEN 325 MG TAB PO PRN (15:15)
[2021-08-13] MEDS: CLOTRIMAZOLE 1% CR 15 GM TOP SCH (15:30)
[2021-08-13] MEDS ORDERED: CEFTRIAXONE 1 GM in SODIUM CHLORIDE 0.9% 50ML 50 ML IV ONE (16:30)
[2021-08-13] MEDS: INSULIN LISPRO 100 UNIT/1 ML 3ML VIAL SQ SCH ×2 (16:30→21:32)
[2021-08-13 16:54] LABS: BASOPHILS % 0.5 % (0.0-1.0); EOSINOPHILS # (AUTO) 0.1 (0.0-0.4); EOSINOPHILS % 2.8 % (0.0-6.0); HEMOGLOBIN 10.1 g/dL (14.0-18.0); LYMPHOCYTES # (AUTO) 1.4 (1.0-3.2); LYMPHOCYTES % 33.3 % (18.0-39.1); MEAN CORPUSCULAR HEMOGLOBIN 28.9 pg (28-32); MEAN CORPUSCULAR HGB CONC 31.6 g/dL (31-35); MEAN CORPUSCULAR VOLUME 91.7 fL (81-99); MONOCYTES # (AUTO) 0.4 (0.2-0.8); MONOCYTES % 9.5 % (4.4-11.3); NEUTROPHILS # (AUTO) 2.3 (2.1-6.9); NEUTROPHILS % 53.9 % (38.7-80.0); PLATELET COUNT 122 x10e3/uL (140-360); RED BLOOD COUNT 3.49 x10e6/uL (4.3-5.7); RED CELL DISTRIBUTION WIDTH 14.7 % (11.7-14.4)
[2021-08-13] MEDS ORDERED: Vancomycin IV 1 GM in SODIUM CHLORIDE 0.9% 250ML 250 ML IV ONE (17:00)
[2021-08-13] MEDS ORDERED: SODIUM CHLORIDE 0.9% 250ML 250 ML ONE (17:07)
[2021-08-13 17:16] LABS: CALCIUM 8.4 mg/dL (8.4-10.2); CREATININE, SERUM 1.58 mg/dL (0.72-1.25)
[2021-08-13] MEDS: HEPARIN SOD (PORCINE) 5,000 UNIT/ML VIAL SC SCH (21:30)
[2021-08-14] VITALS (8 sets, daily range): BP systolic 103–126; BP diastolic 52–67
[2021-08-14] MEDS ORDERED: LEVOTHYROXINE50 MCG PO (05:49)
[2021-08-14] MEDS ORDERED: BUMETANIDE1 MG PO (05:50)
[2021-08-14] MEDS ORDERED: IBUPROFEN200 MG PO (05:52)
[2021-08-14] MEDS ORDERED: SAVAYSA60 MG PO (05:53)
[2021-08-14] MEDS ORDERED: FLOMAX0.4 MG PO (05:54)
[2021-08-14] MEDS ORDERED: COLACE100 MG PO (05:54)
[2021-08-14] MEDS ORDERED: METFORMIN HCL500 MG PO (05:56)
[2021-08-14] MEDS ORDERED: ASPIRIN81 MG PO (05:56)
[2021-08-14] MEDS ORDERED: PRAVASTATIN SOD40 MG PO (05:56)
[2021-08-14] MEDS: INSULIN LISPRO 100 UNIT/1 ML 3ML VIAL SQ SCH ×4 (07:30→20:41)
[2021-08-14] MEDS: HEPARIN SOD (PORCINE) 5,000 UNIT/ML VIAL SC SCH (08:36)
[2021-08-14] MEDS: AMMONIUM LACTATE 12% LOTION 225GM BTL TOP SCH (09:00)
[2021-08-14] MEDS: MUPIROCIN 2% OINT 22 GM TUBE TOP SCH (09:00)
[2021-08-14] MEDS ORDERED: Vancomycin IV 1 GM in SODIUM CHLORIDE 0.9% 250ML 250 ML IV SCH (12:00)
[2021-08-14] MEDS: BUMETANIDE 1 MG TAB PO SCH (16:37)
[2021-08-14] MEDS: LINEZOLID 600 MG TAB PO SCH (16:37)
[2021-08-14] MEDS: MEROPENEM 1 GM in SODIUM CHLORIDE 0.9% 100 ML IV SCH (16:37)
[2021-08-14] MEDS: DOCUSATE SODIUM 100 MG CAP PO SCH (16:37)
[2021-08-14] MEDS: METFORMIN HCL 500 MG TAB PO SCH (16:37)
[2021-08-14] MEDS: ENOXAPARIN 30 MG/0.3 ML SYR SC SCH (18:19)
[2021-08-15] VITALS: BP 106/53
[2021-08-15] MEDS: MEROPENEM 1 GM in SODIUM CHLORIDE 0.9% 100 ML IV SCH ×2 (02:25→15:17)
[2021-08-15 04:00] VITALS: BP 109/71
[2021-08-15] MEDS: LEVOTHYROXINE SODIUM 50 MCG TAB PO SCH (05:21)
[2021-08-15 05:23] LABS: BASOPHILS % 0.5 % (0.0-1.0); EOSINOPHILS # (AUTO) 0.2 (0.0-0.4); EOSINOPHILS % 3.9 % (0.0-6.0); HEMATOCRIT 32.6 % (38.2-49.6); HEMOGLOBIN 10.4 g/dL (14.0-18.0); LYMPHOCYTES # (AUTO) 1.3 (1.0-3.2); LYMPHOCYTES % 34.2 % (18.0-39.1); MEAN CORPUSCULAR HGB CONC 31.9 g/dL (31-35); MEAN CORPUSCULAR VOLUME 90.8 fL (81-99); MONOCYTES # (AUTO) 0.5 (0.2-0.8); MONOCYTES % 12.6 % (4.4-11.3); NEUTROPHILS # (AUTO) 1.8 (2.1-6.9); NEUTROPHILS % 48.5 % (38.7-80.0); PLATELET COUNT 139 x10e3/uL (140-360); RED BLOOD COUNT 3.59 x10e6/uL (4.3-5.7); RED CELL DISTRIBUTION WIDTH 14.3 % (11.7-14.4)
[2021-08-15 05:44] LABS: ANION GAP 15.2 mmol/L (8-16); CALCIUM 8.5 mg/dL (8.4-10.2); CREATININE, SERUM 1.42 mg/dL (0.72-1.25); POTASSIUM 4.2 mmol/L (3.5-5.1)
[2021-08-15] MEDS: INSULIN LISPRO 100 UNIT/1 ML 3ML VIAL SQ SCH ×4 (07:30→21:00)
[2021-08-15 08:00] VITALS: BP 108/58
[2021-08-15] MEDS ORDERED: CEFTRIAXONE 2 GM in SODIUM CHLORIDE 0.9% 100 ML IV SCH (09:00)
[2021-08-15] MEDS: TAMSULOSIN HCL 0.4 MG CAP PO SCH (09:30)
[2021-08-15] MEDS: METFORMIN HCL 500 MG TAB PO SCH ×2 (09:30→17:33)
[2021-08-15] MEDS: ASPIRIN 81 MG CHEW TAB PO SCH (09:30)
[2021-08-15] MEDS: LINEZOLID 600 MG TAB PO SCH ×2 (09:30→17:33)
[2021-08-15] MEDS: AMMONIUM LACTATE 12% LOTION 225GM BTL TOP SCH (09:30)
[2021-08-15] MEDS: DOCUSATE SODIUM 100 MG CAP PO SCH ×2 (09:30→17:33)
[2021-08-15] MEDS: BUMETANIDE 1 MG TAB PO SCH ×2 (09:30→17:00)
[2021-08-15] MEDS: MUPIROCIN 2% OINT 22 GM TUBE TOP SCH (09:30)
[2021-08-15 12:09] VITALS: BP 114/56
[2021-08-15] MEDS: CLOTRIMAZOLE 1% CR 15 GM TOP SCH (15:36)
[2021-08-15 15:53] VITALS: BP 108/56
[2021-08-15] MEDS: ENOXAPARIN 30 MG/0.3 ML SYR SC SCH (17:33)
[2021-08-15 20:00] VITALS: BP 100/47
[2021-08-15] MEDS: PRAVASTATIN 20 MG TAB PO SCH (21:39)
[2021-08-16] VITALS (9 sets, daily range): BP systolic 91–128; BP diastolic 51–66
[2021-08-16] MEDS: MEROPENEM 1 GM in SODIUM CHLORIDE 0.9% 100 ML IV SCH ×2 (03:00→17:04)
[2021-08-16] MEDS: LEVOTHYROXINE SODIUM 50 MCG TAB PO SCH (06:04)
[2021-08-16] MEDS: INSULIN LISPRO 100 UNIT/1 ML 3ML VIAL SQ SCH ×4 (07:30→21:25)
[2021-08-16] MEDS: METFORMIN HCL 500 MG TAB PO SCH ×2 (08:00→17:05)
[2021-08-16] MEDS: TAMSULOSIN HCL 0.4 MG CAP PO SCH (09:00)
[2021-08-16] MEDS: AMMONIUM LACTATE 12% LOTION 225GM BTL TOP SCH (09:00)
[2021-08-16] MEDS: DOCUSATE SODIUM 100 MG CAP PO SCH ×2 (09:00→17:05)
[2021-08-16] MEDS: BUMETANIDE 1 MG TAB PO SCH ×2 (09:00→17:05)
[2021-08-16] MEDS: MUPIROCIN 2% OINT 22 GM TUBE TOP SCH (09:00)
[2021-08-16] MEDS: ASPIRIN 81 MG CHEW TAB PO SCH (09:00)
[2021-08-16] MEDS: LINEZOLID 600 MG TAB PO SCH ×2 (09:00→17:05)
[2021-08-16] MEDS: ENOXAPARIN 30 MG/0.3 ML SYR SC SCH (17:05)
[2021-08-16] MEDS: PRAVASTATIN 20 MG TAB PO SCH (21:25)
[2021-08-17] MEDS: MEROPENEM 1 GM in SODIUM CHLORIDE 0.9% 100 ML IV SCH (02:57)
[2021-08-17 04:00] VITALS: BP 121/58
[2021-08-17] MEDS: LEVOTHYROXINE SODIUM 50 MCG TAB PO SCH (06:15)
[2021-08-17] MEDS: INSULIN LISPRO 100 UNIT/1 ML 3ML VIAL SQ SCH (07:30)
[2021-08-17 07:45] VITALS: BP 115/58
[2021-08-17] MEDS ORDERED: ONDANSETRON HCL 4 MG ORAL DISINTEGRATING TAB PO PRN (08:45)
[2021-08-17] MEDS: DOCUSATE SODIUM 100 MG CAP PO SCH (09:00)
[2021-08-17] MEDS: MUPIROCIN 2% OINT 22 GM TUBE TOP SCH (09:00)
[2021-08-17] MEDS: ASPIRIN 81 MG CHEW TAB PO SCH (09:00)
[2021-08-17] MEDS: BUMETANIDE 1 MG TAB PO SCH (09:00)
[2021-08-17] MEDS: AMMONIUM LACTATE 12% LOTION 225GM BTL TOP SCH (09:00)
[2021-08-17] MEDS: METFORMIN HCL 500 MG TAB PO SCH (09:00)
[2021-08-17] MEDS: TAMSULOSIN HCL 0.4 MG CAP PO SCH (09:00)
[2021-08-17] MEDS: LINEZOLID 600 MG TAB PO SCH (09:00)
[2021-08-17] MEDS ORDERED: CIPRO250 MG PO (11:50)
[2021-08-17] MEDS ORDERED: ZYVOX600 MG PO (11:50)
[2021-08-17 12:04] VITALS: BP 107/59
== END 2021-08-17 12:46 | disposition home or self-care (01) | DRG 300 ==
LOC: MED/SURG2 13:26
PROVIDERS: ADMIT Internal Medicine; ATTEND Internal Medicine
DX: I87.2 Venous insufficiency (chronic) (peripheral) (principal); L03.115 Cellulitis of right lower limb; I13.0 Hypertensive heart and chronic kidney disease with heart failure and stage 1 through stage 4 chronic kidney disease, or unspecified chronic kidney disease; L97.329 Non-pressure chronic ulcer of left ankle with unspecified severity; E11.51 Type 2 diabetes mellitus with diabetic peripheral angiopathy without gangrene; E11.628 Type 2 diabetes mellitus with other skin complications; Z79.899 Other long term (current) drug therapy; D69.6 Thrombocytopenia, unspecified; I50.9 Heart failure, unspecified; N18.30 Chronic kidney disease, stage 3 unspecified; E11.22 Type 2 diabetes mellitus with diabetic chronic kidney disease; Z85.46 Personal history of malignant neoplasm of prostate; Z86.14 Personal history of Methicillin resistant Staphylococcus aureus infection; Z20.822 Contact with and (suspected) exposure to COVID-19; E11.622 Type 2 diabetes mellitus with other skin ulcer
CPT/HCPCS: 36415; 80048; 82948; 85025; 99251; J0696; J1644; J1650; J2185; J3370; J7050; U0002

== ENCOUNTER 2021-09-03 09:53 | Outpatient (RCR) | payer MEDICARE ==
[~2021-09-03 09:53] MED LIST changes: +ASPIRIN81 MG PO; +BUMETANIDE1 MG PO; +CIPRO250 MG PO; +COLACE100 MG PO; +FLOMAX0.4 MG PO; +IBUPROFEN200 MG PO; +LEVOTHYROXINE50 MCG PO; +METFORMIN HCL500 MG PO; +PRAVASTATIN SOD40 MG PO; +SAVAYSA60 MG PO; +ZYVOX600 MG PO
== END 2021-09-15 ==
LOC: WCC 09:53
PROVIDERS: ATTEND Family Medicine Adult Medicine
DX: I87.312 Chronic venous hypertension (idiopathic) with ulcer of left lower extremity (principal); E11.8 Type 2 diabetes mellitus with unspecified complications; L97.321 Non-pressure chronic ulcer of left ankle limited to breakdown of skin; L97.811 Non-pressure chronic ulcer of other part of right lower leg limited to breakdown of skin; L03.115 Cellulitis of right lower limb; I82.402 Acute embolism and thrombosis of unspecified deep veins of left lower extremity; I89.0 Lymphedema, not elsewhere classified; R60.0 Localized edema; I87.2 Venous insufficiency (chronic) (peripheral); I87.331 Chronic venous hypertension (idiopathic) with ulcer and inflammation of right lower extremity; I73.9 Peripheral vascular disease, unspecified; I10 Essential (primary) hypertension; I50.22 Chronic systolic (congestive) heart failure; B96.89 Other specified bacterial agents as the cause of diseases classified elsewhere; E03.9 Hypothyroidism, unspecified; E66.3 Overweight; W29.8XXA Contact with other powered hand tools and household machinery, initial encounter

== ENCOUNTER 2021-10-15 12:44 | Outpatient (RCR) | payer MEDICARE ==
[~2021-10-15 12:44] MED LIST changes: +TRYPSIN/BALSAM PERU/CASTOR OIL ONE
[2021-10-15] MEDS ORDERED: MUPIROCIN 2% OINT 22 GM TUBE ONE (13:30)
[2021-10-15] MEDS ORDERED: MINERAL OIL/PETROLAT/GLYCERI 6OZ BTL ONE (13:30)
== END 2021-10-16 ==
LOC: WCC 12:44
PROVIDERS: ATTEND Family Medicine Adult Medicine
DX: E11.8 Type 2 diabetes mellitus with unspecified complications (principal); I87.312 Chronic venous hypertension (idiopathic) with ulcer of left lower extremity; L97.321 Non-pressure chronic ulcer of left ankle limited to breakdown of skin; I82.402 Acute embolism and thrombosis of unspecified deep veins of left lower extremity; I73.9 Peripheral vascular disease, unspecified; I87.2 Venous insufficiency (chronic) (peripheral); I89.0 Lymphedema, not elsewhere classified; L84 Corns and callosities; R60.0 Localized edema; I10 Essential (primary) hypertension; B96.89 Other specified bacterial agents as the cause of diseases classified elsewhere; E03.9 Hypothyroidism, unspecified; I50.22 Chronic systolic (congestive) heart failure; E66.3 Overweight; W29.8XXA Contact with other powered hand tools and household machinery, initial encounter

== ENCOUNTER 2021-11-12 12:00 | Outpatient (RCR) | payer MEDICARE ==
[~2021-11-12 12:00] MED LIST changes: +MINERAL OIL/PETROLAT/GLYCERI 2OZ CRM ONE; -TRYPSIN/BALSAM PERU/CASTOR OIL ONE
[2021-11-12] MEDS ORDERED: MUPIROCIN 2% OINT 22 GM TUBE ONE (13:47)
[2021-11-12] MEDS ORDERED: MINERAL OIL/PETROLAT/GLYCERI 6OZ BTL ONE (13:47)
== END 2021-11-16 ==
LOC: WCC 12:00
PROVIDERS: ATTEND Family Medicine Adult Medicine
DX: E11.8 Type 2 diabetes mellitus with unspecified complications (principal); I82.402 Acute embolism and thrombosis of unspecified deep veins of left lower extremity; I87.312 Chronic venous hypertension (idiopathic) with ulcer of left lower extremity; L97.821 Non-pressure chronic ulcer of other part of left lower leg limited to breakdown of skin; L97.321 Non-pressure chronic ulcer of left ankle limited to breakdown of skin; I87.2 Venous insufficiency (chronic) (peripheral); I89.0 Lymphedema, not elsewhere classified; I73.9 Peripheral vascular disease, unspecified; S80.822A Blister (nonthermal), left lower leg, initial encounter; R60.0 Localized edema; I50.22 Chronic systolic (congestive) heart failure; I10 Essential (primary) hypertension; E03.9 Hypothyroidism, unspecified; B96.89 Other specified bacterial agents as the cause of diseases classified elsewhere; E66.3 Overweight; W29.8XXA Contact with other powered hand tools and household machinery, initial encounter

== ENCOUNTER 2021-12-10 11:39 | Outpatient (RCR) | payer MEDICARE ==
[~2021-12-10 11:39] MED LIST changes: -MINERAL OIL/PETROLAT/GLYCERI 2OZ CRM ONE; -MUPIROCIN 2% OINT 22 GM TUBE ONE
[2021-12-10] MEDS ORDERED: MINERAL OIL/PETROLAT/GLYCERI 6OZ BTL ONE (13:02)
[2021-12-10] MEDS ORDERED: LIDOCAINE VISC 2% SOLN 15 ML UDC ONE (13:02)
== END 2021-12-14 ==
LOC: WCC 11:39
PROVIDERS: ATTEND Family Medicine Adult Medicine
DX: E11.8 Type 2 diabetes mellitus with unspecified complications (principal); L97.821 Non-pressure chronic ulcer of other part of left lower leg limited to breakdown of skin; I87.312 Chronic venous hypertension (idiopathic) with ulcer of left lower extremity; I82.402 Acute embolism and thrombosis of unspecified deep veins of left lower extremity; I87.2 Venous insufficiency (chronic) (peripheral); I73.9 Peripheral vascular disease, unspecified; I89.0 Lymphedema, not elsewhere classified; R60.0 Localized edema; I50.22 Chronic systolic (congestive) heart failure; I10 Essential (primary) hypertension; E03.9 Hypothyroidism, unspecified; B96.89 Other specified bacterial agents as the cause of diseases classified elsewhere; E66.3 Overweight; W29.8XXA Contact with other powered hand tools and household machinery, initial encounter

== ENCOUNTER 2021-12-31 11:01 | Outpatient (RCR) | payer MEDICARE ==
[2021-12-31] MEDS ORDERED: MINERAL OIL/PETROLAT/GLYCERI 2OZ CRM ONE (13:18)
== END 2022-01-14 ==
LOC: WCC 11:01
PROVIDERS: ATTEND Family Medicine Adult Medicine
DX: E11.8 Type 2 diabetes mellitus with unspecified complications (principal); I82.402 Acute embolism and thrombosis of unspecified deep veins of left lower extremity; L97.821 Non-pressure chronic ulcer of other part of left lower leg limited to breakdown of skin; I87.332 Chronic venous hypertension (idiopathic) with ulcer and inflammation of left lower extremity; I87.2 Venous insufficiency (chronic) (peripheral); I89.0 Lymphedema, not elsewhere classified; I73.9 Peripheral vascular disease, unspecified; R60.0 Localized edema; S80.822A Blister (nonthermal), left lower leg, initial encounter; I10 Essential (primary) hypertension; I50.22 Chronic systolic (congestive) heart failure; E03.9 Hypothyroidism, unspecified; B96.89 Other specified bacterial agents as the cause of diseases classified elsewhere; E66.3 Overweight; W29.8XXA Contact with other powered hand tools and household machinery, initial encounter

== ENCOUNTER → 2022-03-04 | Outpatient (CLI) | payer MEDICARE ==
[~2022-03-04] MED LIST changes: -LIDOCAINE VISC 2% SOLN 15 ML UDC ONE; -MINERAL OIL/PETROLAT/GLYCERI 6OZ BTL ONE
[2022-03-04 10:48] LABS: ABG HCO3 33 mmol/L (22-26); ABG PCO2 44 mmHg (35-45); ABG PH 7.48 (7.35-7.45); ABG PO2 84 mmHg (80-105); ABG TCO2 34
== END ==
LOC: RAD 08:48
PROVIDERS: ATTEND Family Medicine Adult Medicine
DX: Z01.810 Encounter for preprocedural cardiovascular examination (principal); Z01.811 Encounter for preprocedural respiratory examination
CPT/HCPCS: 36415; 71046; 82805; 87071; 87075; 87205; 93005; 93306

== ENCOUNTER → 2022-03-16 | Outpatient (RCR) | payer MEDICARE ==
[~2022-03-16] MED LIST changes: +CLOTRIMAZOLE/BETAMETHASONE 45 GM CR TP ONE; +LIDOCAINE VISC 2% SOLN 15 ML UDC ONE; +MINERAL OIL/PETROLAT/GLYCERI 6OZ BTL ONE; +MUPIROCIN 2% OINT 22 GM TUBE ONE
== END ==
LOC: WCC 02-23 10:36
PROVIDERS: ATTEND Family Medicine Adult Medicine
DX: E11.8 Type 2 diabetes mellitus with unspecified complications (principal); Y84.2 Radiological procedure and radiotherapy as the cause of abnormal reaction of the patient, or of later complication, without mention of misadventure at the time of the procedure; I87.312 Chronic venous hypertension (idiopathic) with ulcer of left lower extremity; L97.821 Non-pressure chronic ulcer of other part of left lower leg limited to breakdown of skin; R60.0 Localized edema; I73.9 Peripheral vascular disease, unspecified; I82.402 Acute embolism and thrombosis of unspecified deep veins of left lower extremity; I87.2 Venous insufficiency (chronic) (peripheral); I89.0 Lymphedema, not elsewhere classified; L84 Corns and callosities; N30.41 Irradiation cystitis with hematuria; I50.22 Chronic systolic (congestive) heart failure; C61 Malignant neoplasm of prostate; I10 Essential (primary) hypertension; G99.0 Autonomic neuropathy in diseases classified elsewhere; B96.89 Other specified bacterial agents as the cause of diseases classified elsewhere; E03.9 Hypothyroidism, unspecified; E66.3 Overweight; W29.8XXA Contact with other powered hand tools and household machinery, initial encounter; Z01.810 Encounter for preprocedural cardiovascular examination; Z01.811 Encounter for preprocedural respiratory examination
CPT/HCPCS: 11042 ×3; 11055; 29581 ×4; 36415 ×3; 82948 ×3; 99212; 99213 ×2; 99214; G0277

== ENCOUNTER → 2022-04-15 | Outpatient (RCR) | payer MEDICARE ==
[~2022-04-15] MED LIST changes: -CLOTRIMAZOLE/BETAMETHASONE 45 GM CR TP ONE
== END ==
LOC: WCC 03-17 11:28
PROVIDERS: ATTEND Family Medicine Adult Medicine
DX: I87.312 Chronic venous hypertension (idiopathic) with ulcer of left lower extremity (principal); Y84.2 Radiological procedure and radiotherapy as the cause of abnormal reaction of the patient, or of later complication, without mention of misadventure at the time of the procedure; E11.8 Type 2 diabetes mellitus with unspecified complications; I82.402 Acute embolism and thrombosis of unspecified deep veins of left lower extremity; L97.821 Non-pressure chronic ulcer of other part of left lower leg limited to breakdown of skin; L97.811 Non-pressure chronic ulcer of other part of right lower leg limited to breakdown of skin; I73.9 Peripheral vascular disease, unspecified; I89.0 Lymphedema, not elsewhere classified; I87.311 Chronic venous hypertension (idiopathic) with ulcer of right lower extremity; I87.2 Venous insufficiency (chronic) (peripheral); R60.0 Localized edema; I50.22 Chronic systolic (congestive) heart failure; N30.41 Irradiation cystitis with hematuria; I10 Essential (primary) hypertension; C61 Malignant neoplasm of prostate; E03.9 Hypothyroidism, unspecified; G99.0 Autonomic neuropathy in diseases classified elsewhere; B96.89 Other specified bacterial agents as the cause of diseases classified elsewhere; E66.3 Overweight; W29.8XXA Contact with other powered hand tools and household machinery, initial encounter; Z01.810 Encounter for preprocedural cardiovascular examination; Z01.811 Encounter for preprocedural respiratory examination
CPT/HCPCS: 11042 ×4; 29581 ×4; 36415 ×18; 82948 ×18; 99213 ×4; G0277 ×19

== ENCOUNTER 2022-05-11 11:21 | Outpatient (RCR) | payer MEDICARE ==
[~2022-05-11 11:21] MED LIST changes: +CLOTRIMAZOLE/BETAMETHASONE 45 GM CR TP ONE
== END 2022-05-16 ==
LOC: WCC 11:21
PROVIDERS: ATTEND Family Medicine Adult Medicine
DX: E11.8 Type 2 diabetes mellitus with unspecified complications (principal); Y84.2 Radiological procedure and radiotherapy as the cause of abnormal reaction of the patient, or of later complication, without mention of misadventure at the time of the procedure; I87.312 Chronic venous hypertension (idiopathic) with ulcer of left lower extremity; L97.821 Non-pressure chronic ulcer of other part of left lower leg limited to breakdown of skin; I82.402 Acute embolism and thrombosis of unspecified deep veins of left lower extremity; N30.41 Irradiation cystitis with hematuria; I73.9 Peripheral vascular disease, unspecified; I87.2 Venous insufficiency (chronic) (peripheral); I89.0 Lymphedema, not elsewhere classified; R60.0 Localized edema; I10 Essential (primary) hypertension; I50.22 Chronic systolic (congestive) heart failure; C61 Malignant neoplasm of prostate; E03.9 Hypothyroidism, unspecified; G99.0 Autonomic neuropathy in diseases classified elsewhere; B96.89 Other specified bacterial agents as the cause of diseases classified elsewhere; E66.3 Overweight; W29.8XXA Contact with other powered hand tools and household machinery, initial encounter; Z01.810 Encounter for preprocedural cardiovascular examination; Z01.811 Encounter for preprocedural respiratory examination
CPT/HCPCS: 11042 ×3; 29581 ×5; 36415 ×6; 82948 ×6; 97597; 99213 ×5; G0277 ×11

== ENCOUNTER 2022-05-25 14:07 | Outpatient (RCR) | payer MEDICARE ==
[~2022-05-25 14:07] MED LIST changes: -CLOTRIMAZOLE/BETAMETHASONE 45 GM CR TP ONE; -LIDOCAINE VISC 2% SOLN 15 ML UDC ONE; -MINERAL OIL/PETROLAT/GLYCERI 6OZ BTL ONE; -MUPIROCIN 2% OINT 22 GM TUBE ONE
== END 2022-06-16 ==
LOC: WCC 14:07
PROVIDERS: ATTEND Family Medicine Adult Medicine
DX: E11.8 Type 2 diabetes mellitus with unspecified complications (principal); Y84.2 Radiological procedure and radiotherapy as the cause of abnormal reaction of the patient, or of later complication, without mention of misadventure at the time of the procedure; C61 Malignant neoplasm of prostate; I82.402 Acute embolism and thrombosis of unspecified deep veins of left lower extremity; I87.311 Chronic venous hypertension (idiopathic) with ulcer of right lower extremity; I87.312 Chronic venous hypertension (idiopathic) with ulcer of left lower extremity; L97.811 Non-pressure chronic ulcer of other part of right lower leg limited to breakdown of skin; L97.821 Non-pressure chronic ulcer of other part of left lower leg limited to breakdown of skin; I87.2 Venous insufficiency (chronic) (peripheral); I73.9 Peripheral vascular disease, unspecified; I89.0 Lymphedema, not elsewhere classified; R60.0 Localized edema; N30.41 Irradiation cystitis with hematuria; I10 Essential (primary) hypertension; I50.22 Chronic systolic (congestive) heart failure; E03.9 Hypothyroidism, unspecified; G99.0 Autonomic neuropathy in diseases classified elsewhere; B96.89 Other specified bacterial agents as the cause of diseases classified elsewhere; E66.3 Overweight; W29.8XXA Contact with other powered hand tools and household machinery, initial encounter; Z01.810 Encounter for preprocedural cardiovascular examination; Z01.811 Encounter for preprocedural respiratory examination